=== PATIENT | female | born 1955 | race Caucasian/White ===

== ENCOUNTER 2020-06-12 22:19 | Emergency (ER) | payer MEDICAID ==
[~2020-06-12] VITALS: Ht 157.5 cm; Wt 63.0 kg
[2020-06-13] MEDS ORDERED: IBUPROFEN 600MG TABLET PO ONE
[2020-06-13] MEDS ORDERED: IBUP-2029 MT (00:04)
[2020-06-13 01:15] VITALS: BP 145/88
== END 2020-06-13 01:15 | disposition home or self-care (01) ==
LOC: ER 22:19
DX: S49.81XA Other specified injuries of right shoulder and upper arm, initial encounter (principal); S00.83XA Contusion of other part of head, initial encounter; F20.9 Schizophrenia, unspecified; Y08.89XA Assault by other specified means, initial encounter; Y93.89 Activity, other specified; Y92.89 Other specified places as the place of occurrence of the external cause; Y99.8 Other external cause status; Z88.0 Allergy status to penicillin
CPT/HCPCS: 73030; 99284

== ENCOUNTER 2020-06-21 08:18 | Emergency (ER) | payer MEDICAID ==
[~2020-06-21] VITALS: Ht 165.1 cm; Wt 75.0 kg
[~2020-06-21 08:18] MED LIST: IBUP-2029 MT
[2020-06-21] MEDS ORDERED: ONDANSETRON HCL 4MG/2ML INJ IV STA (08:29)
[2020-06-21] MEDS ORDERED: IBUPROFEN 600MG TABLET PO STA (08:29)
[2020-06-21 09:10] LABS: BASOPHILS % 1.3 % (0.0-2.0); HEMATOCRIT. 38.9 % (36.0-48.0); HEMOGLOBIN. 13.7 g/dL (12.0-16.0); LYMPHOCYTES % 18.4 % (20.0-50.0); MEAN CORPUSCULAR HEMOGLOBIN 30.7 pg (28.0-32.0); MEAN CORPUSCULAR VOLUME 87.2 fL (81.0-99.0); MEAN PLATELET VOLUME 7.3 fl (7.4-10.4); MONOCYTES % 6.5 % (2.0-8.0); NEUTROPHILS % 72.8 % (40.0-76.0); PLATELET 301 x1000/uL (130-400); RED BLOOD CELL COUNT 4.46 mill/uL (4.2-5.4); RED CELL DISTRIBUTION WIDTH 13.1 % (11.6-14.6)
[2020-06-21 09:17] LABS: CHLORIDE 109 mEq/L (98-107)
[2020-06-21 09:21] LABS: ETHANOL BLOOD < 10 mg/dL
[2020-06-21 09:33] LABS: CLARITY URINE CLEAR (CLEAR); COLOR URINE YELLOW (YELLOW); KETONES URINE NEGATIVE (NEGATIVE); LEUKOCYTE ESTERASE URINE NEGATIVE (NEGATIVE); NITRITE URINE NEGATIVE (NEGATIVE); OCCULT BLOOD URINE NEGATIVE (NEGATIVE); PH URINE 6.5 (4.5-8.0); PROTEIN URINE NEGATIVE (NEGATIVE); SPECIFIC GRAVITY URINE 1.013 (1.005-1.030); UROBILINOGEN URINE 0.2 E.U./dL (0.2-1.0)
[2020-06-21 10:15] LABS: *AMPHETAMINES SCREEN URINE NEGATIVE (NEGATIVE)
[2020-06-21 10:16] LABS: *BARBITURATES SCREEN URINE NEGATIVE (NEGATIVE); *BENZODIAZEPINES SCREEN URINE NEGATIVE (NEGATIVE); *COCAINE SCREEN URINE NEGATIVE (NEGATIVE); METHADONE URINE SCREEN NEGATIVE (NEGATIVE); OPIATES URINE SCREEN NEGATIVE (NEGATIVE); PHENCYCLIDINE URINE SCREEN NEGATIVE (NEGATIVE)
[2020-06-21 10:17] LABS: CANNABINOID URINE SCREEN NEGATIVE (NEGATIVE)
[2020-06-21 11:07] VITALS: BP 145/59
== END 2020-06-21 11:09 | disposition home or self-care (01) ==
LOC: ER 08:18
DX: R51.9 Headache, unspecified (principal); I10 Essential (primary) hypertension; F20.9 Schizophrenia, unspecified; Z88.6 Allergy status to analgesic agent; Z88.0 Allergy status to penicillin
CPT/HCPCS: 36415; 70450; 71045; 80053; 80305; 80320; 81003; 84484; 85025; 93005; 96374; 99285; J2405; G0480